=== PATIENT | male | born 1965 ===

== ENCOUNTER 2017-01-11 09:06 | Emergency (ER) | payer SELFPAY ==
[~2017-01-11] VITALS: Wt 79.0 kg
[2017-01-11] MEDS ORDERED: HYDROCODONE/APAP (5/325) TAB PO ONE (09:30)
[2017-01-11] MEDS ORDERED: IBUP-1542 PO (09:41)
[2017-01-11] MEDS ORDERED: HYDR-906 PO (09:41)
[2017-01-11] MEDS ORDERED: ACYC800T57 PO (09:42)
--- NOTE | 2017-01-11 10:10 | ERD ---
ER Documentation Chief Complaint Date/Time DATE: 01/11/17 TIME: 10:07 Chief Complaint RASH TO ABD AND BACK AREA HPI This a 51-year-old male who presents the emergency department today complaining of a rash to his stomach and back for the past 3 days. States that it is painful. Denies any fevers or chills. ROS All systems reviewed and are negative except as per history of present illness. Medications Home Meds Active Scripts Acyclovir* (Zovirax*) 800 Mg Tablet, 800 MG PO 5 TIMES DAILY for 7 Days, TAB Prov:TAM SALMON PA-C 01/11/17 Ibuprofen* (Motrin*) 600 Mg Tab, 600 MG PO Q6, #30 TAB Prov:TAM SALMON PA-C 01/11/17 Hydrocodone/Acetaminophen (Erieville 5-325 Tablet) 1 Each Tablet, 1 TAB PO Q6H Y for PAIN, #20 TAB Prov:TAM SALMON PA-C 01/11/17 PMhx/Soc Medical and Surgical Hx: pt denies Medical Hx, pt denies Surgical Hx Hx Alcohol Use: Yes Hx Substance Use: No Hx Tobacco Use: No Smoking Status: Never smoker Physical Exam Vitals Vital Signs Date Time Temp Pulse Resp B/P Pulse Ox O2 Delivery O2 Flow Rate FiO2 01/11/17 09:17 98.0 71 18 126/90 99 Physical Exam Const: No acute distress Head: Atraumatic Eyes: Normal Conjunctiva ENT: Normal External Ears, Nose and Mouth. Neck: Full range of motion..~ No meningismus. Resp: Clear to auscultation bilaterally Cardio: Regular rate and rhythm, no murmurs Abd: Soft, non tender, non distended. Normal bowel sounds Skin: Multiple vesicular fluid-filled lesions on abdomen and back with localized erythema along dermatomal pattern along left side of abdomen and left leg Back: Multiple vesicular fluid-filled lesions on left flank Ext: No cyanosis, or edema Neur: Awake and alert Psych: Normal Mood and Affect Results 24 hrs Current Medications Medications (Trade) Dose Ordered Sig/Sherlyn Route PRN Reason Start Time Stop Time Status Last Admin Dose Admin Acetaminophen/ Hydrocodone Bitart (Erieville (5/325)) 1 tab ONCE ONCE PO 01/11/17 09:30 01/11/17 09:31 DC 01/11/17 09:39 Procedures/MDM This a 51-year-old male who presents to the emergency department today for a rash for the past 3 days. On physical exam patient has multiple fluid-filled vesicular lesions and localized erythema along left side of abdomen and left flank most consistent with shingles. Patient is afebrile otherwise well- appearing. Low suspicion for viral exanthem, cellulitis, sepsis, deep space infection, SJS, meningitis, TEN. Patient was given Erieville here in the emergency department. I will give him a prescription for Erieville, Motrin and acyclovir for home. I did explain to the patient that this was contagious. Patient understood At this time the patient is stable for discharge and outpatient management. Patient should follow up with their PCP in the next 1-2 days. They may return to the emergency department sooner for any persistent or worsening of symptoms. Patient understood and agreed with the plan. Departure Diagnosis: Primary Impression: Shingles Herpes zoster complications: without complications Qualified Code: B02.9 - Herpes zoster without complication Condition: Fair Patient Instructions: Shingles (Herpes Zoster) [facility] Usted se mcgregor hecho un examen mdico de control que le indica que no est en erlin condicin que requiera tratamiento urgente en el Departamento de Emergencia. Un estudio ms profundo y el tratamiento de sena condicin pueden esperar sin ningn riesgo hasta que usted sea atendida/o en el consultorio de sena mdico o erlin cl lizette. Es responsabilidad suya arreglar erlin josh para el seguimiento del shana. MANEJO DE CONDICIONES NO URGENTES EN EL FUTURO 1) Si usted tiene un mdico de atencin primaria: Usted debera llamar a sena mdico de atencin primaria antes de venir al departamento de emergencia. Despus de las horas de consultorio, sena doctor o sena asociado/a est disponible por telfono. El mdico o enfermero de pollo en el servicio telefnico puede asesorarle por gildardo medio para atender el problema, o shana contrario se puede programar erlin josh. 2) Si usted no tiene un mdico de atencin primaria: Llame al mdico o clnica de referencia que aparece abajo claudia las horas de consultorio para hacer erlin josh para que le vean. CLINICAS: [facility] [phone] [facility] [phone] [facility] [phone] [facility] [phone] [place] [phone] [facility] [phone] [address] Additional Instructions: Llame al doctor MAANA y ez erlin JOSH PARA DENTRO DE 1-2 MARTINEZ.Dgale a la secretaria que nosotros le instruimos hacer esta josh.Avise o llame si sena condicin se empeora antes de la josh. Regresa aqui si peor o no mejor. Take Erieville for severe pain otherwise take Tylenol or Motrin or Naprosyn Take acyclovir as prescribed for shingles TAM SALMON PA-C Jan 11, 2017 10:10
== END 2017-01-11 09:50 | disposition home or self-care (01) ==
LOC: FTE 09:06
DX: B02.9 Zoster without complications (principal)
CPT/HCPCS: 99284